=== PATIENT | female | born 1945 | race Caucasian/White ===

== ENCOUNTER → 2020-10-13 09:21 | Outpatient (CLI) | payer MEDICARE, MEDICAID, SELFPAY ==
--- NOTE | 2020-10-13 10:05 | PC.NURSE ---
Pt here for PFT and 6 minute walk test. Attempted FVC 8 separate times the PT is unable to breath out for more than 2 seconds total. She did not give a good effort even though I explained the importance for the test multiple times. She was instructed in different ways with no success. Pt finally states I am doing my best I am just too short of breath, I am unable to continue. RR 14 bpm easy and calm, no respiratory distress or SOB noted. 6 minute walk test completed with no complications, after fourth attempt then returned to PFT for four more unsuccessful attempts.
== END ==
PROVIDERS: PCP Family Medicine; Visit Provider Internal Medicine Pulmonary Disease
DX: R06.02 Shortness of breath (principal); R91.1 Solitary pulmonary nodule
CPT/HCPCS: 94010; 94618

== ENCOUNTER → 2020-11-08 14:02 | Outpatient (CLI) | payer MEDICARE, MEDICAID, SELFPAY ==
--- NOTE | 2020-11-08 14:15 | CT_ITS ---
PROCEDURE INFORMATION: Exam: CT Chest Without Contrast; Diagnostic; High Resolution Exam date and time: 11/08/2020 2:15 PM Age: 75 years old Clinical indication: Other: Lung nodule TECHNIQUE: Imaging protocol: Diagnostic computed tomography of the chest without contrast. Exam was performed with high resolution protocol. 3D rendering (Not supervised by radiologist): MIP and/or 3D reconstructed images were created by the technologist. Radiation optimization: All CT scans at this facility use at least one of these dose optimization techniques: automated exposure control; mA and/or kV adjustment per patient size (includes targeted exams where dose is matched to clinical indication); or iterative reconstruction. COMPARISON: CT CHEST WO CONTRAST 08/26/2020 2:39 PM FINDINGS: Lungs: Calcified nodule noted within the right upper lobe consistent with granulomatous changes. No new pulmonary nodules. The lungs are hyperinflated, consistent with underlying small airways disease. Atelectatic changes noted within both lung bases. Pleural space: Mild apical pleural thickening bilaterally. Heart: There is mild atherosclerotic calcification of the coronary arteries. The heart demonstrates mild diffuse enlargement. Aorta: Unremarkable. No aortic aneurysm. Lymph nodes: There is no evidence of mediastinal or hilar lymphadenopathy. Bones/joints: The thoracic spine demonstrates mild degenerative changes at multiple levels. Soft tissues: Unremarkable. IMPRESSION: 1. Calcified nodule noted within the right upper lobe consistent with granulomatous changes. 2. No new pulmonary nodules. 3. The lungs are hyperinflated, consistent with underlying small airways disease. 4. Atelectatic changes noted within both lung bases.
[2020-11-08 14:43] LABS: Blood Urea Nitrogen 13 mg/dl (7-17); Estimated Glomerular Filt Rate 70 ml/min (>60); GFR (African American) 85 ML/MIN (>60)
== END ==
PROVIDERS: PCP Family Medicine; Visit Provider Internal Medicine Pulmonary Disease
DX: J84.9 Interstitial pulmonary disease, unspecified (principal)
CPT/HCPCS: 36415; 71250; 82565; 84520

== ENCOUNTER 2021-07-10 15:27 | Inpatient (IN) | payer MEDICARE, MEDICAID, SELFPAY ==
[2021-07-10 15:42] VITALS: BMI 22.1
--- NOTE | 2021-07-10 15:42 | PC.NURSE ---
pt arrived to floor via ambulance stretcher
[2021-07-10 16:27] LABS: Influenza A, PCR Not Detected (NotDetected); Influenza B, PCR Not Detected (NotDetected)
[2021-07-10 17:37] LABS: Coronavirus 19, PCR Detected (NotDetected)
[2021-07-10 20:00] VITALS: BP 132/63; PULSE 60; PULSE 63; RESP 20; TEMP 36.8; O2SAT 91
--- NOTE | 2021-07-10 21:13 | HMH.HP ---
*Admission Date: 07/10/21 *Chief complaint: weakness *History of present illness: this patient presented to [place] [facility] with issues of weakness and not feeling well and fall - pt has diabetes but denied any known heart dis - pt was found to have elevated troponin consistent with nonstemi as ekg was stable and was transfered to [facility] for card eval and treatment - pt was found to be covid-19 positive at [place]- pt had uti also and was given roch and had neg ct of head and cxr with stable labs [facility] History I have reviewed the patient's past medical history: Yes Medical History: Reports:: Asthma, Chronic Obstructive Pulmonary Disease (COPD), Coronary Artery Disease, Gastroesophageal Reflux Disease(GERD), Hyperlipidemia, Hypertension, Palpitations Denies:: Diabetes Mellitus Type 2 *Have you ever received a pneumonia vaccine?: No *Have you received a flu vaccine this season?: No Other Medical History: Reports: Anemia, Arthritis Other Surgeries: Yes: - *Social History Smoking Status: Never smoker Alcohol Intake: never *Occupational Status:: retired *Travel in the last 8 weeks: None Family Hx:: Cancer, Diabetes, Heart Attack, Hyperlipidemia, Hypertension Review of Systems - Review of Systems Review of systems:: pertinent systems reviewed and negative unless documented below - Constitutional Reports weakness, Denies fever(s) - Eyes Denies discharge - ENT Denies sore throat - *Cardiovascular Denies chest pain, Denies shortness of breath - *Respiratory Denies cough - *Gastrointestinal Denies abdominal pain - *Genitourinary Denies blood in urine - *Musculoskeletal Denies joint pain - Integumentary/Breasts Denies rash - *Neurologic Denies abnormal speech, Denies localized weakness, Denies headache(s), Denies seizure-like activity - Psychiatric Denies confusion, Denies depression Meds Home Medications Medication Instructions Recorded Confirmed Type albuterol sulfate 90 mcg/actuation 2 puff INHALATION Q4-6H PRN 09/20/20 07/10/21 History aerosol inhaler amlodipine 10 mg tablet 10 mg PO DAILY 09/20/20 07/10/21 History aspirin 81 mg tablet,delayed 81 mg PO DAILY 09/20/20 07/10/21 History release cholecalciferol (vitamin D3) 50 50 mcg PO DAILY 09/20/20 07/10/21 History mcg (2,000 unit) capsule ferrous sulfate 325 mg (65 mg 325 mg PO DAILY 09/20/20 07/10/21 History iron) tablet glimepiride 1 mg tablet 1 mg PO BID tab 09/20/20 07/10/21 History lisinopril 20 1 tab PO DAILY 09/20/20 07/10/21 History mg-hydrochlorothiazide 12.5 mg tablet metformin 500 mg tablet 500 mg PO QID tab 09/20/20 07/10/21 History montelukast 10 mg tablet 10 mg PO DAILY 09/20/20 07/10/21 History omeprazole magnesium 20 mg 20 mg PO BID 09/20/20 07/10/21 History tablet,delayed release pravastatin 40 mg tablet 40 mg PO DAILY 09/20/20 07/10/21 History pregabalin 75 mg capsule 75 mg PO BID 09/20/20 07/10/21 History fluticasone 250 mcg-salmeterol 50 1 inh INHALATION BID 90 Days #60 01/11/21 07/10/21 Rx mcg/dose blistr powdr for each inhalation Allergies Allergy/AdvReac Type Severity Reaction Status Date / Time sumatriptan [From Imitrex] Allergy Verified 07/10/21 17:41 Exam Vital signs and Labs for Last 24 Hours: Temp Pulse Resp BP Pulse Ox 98.2 F 63 20 132/63 91 L 07/10/21 20:00 07/10/21 20:00 07/10/21 20:00 07/10/21 20:00 07/10/21 20:00 Laboratory Results - last 24 hr 07/10/21 16:19: SARS-CoV-2 (PCR) Detected A, Influenza A Untype (PCR) Not detected, Influenza Type B (PCR) Not detected I & O for Last 24 hours: Intake & Output 07/08/21 07/09/21 07/10/21 07/11/21 11:59 11:59 11:59 11:59 Intake Total 120 / 120 Balance 120 / 120 Weight 137 lb 2.04 oz - Constitutional no acute distress, cooperative - *Routine HEENT Exam Head: Present: normocephalic Eye: Present: EOMI, PERRL ENT: Present: mucous membranes dry - *Routine Neck Exam Absent: CARINE
[2021-07-11] VITALS (23 sets, daily range): BP systolic 135–182; BP diastolic 61–93; PULSE 50–89; RESP 15–22; TEMP 36.6–36.9; O2SAT 91–96; BMI 22.0
--- NOTE | 2021-07-11 | IR_ITS ---
APPROVED REPORT Patient Location: Inpatient Verification Rep: TONY Amaya RT (R) PROCEDURES Left heart catheterization Left ventriculogram Selective coronary angiogram Bilateral selective renal angiogram INDICATION Acute non-ST elevation myocardial infarction, Intermittent malignant hypertension Informed consent was obtained prior to the procedure. COMPLICATIONS None Estimated Blood Loss: Less than 10 mls TECHNIQUE One percent lidocaine used to anesthetize the right anterior aspect of the wrist. The right radial artery was accessed via the Seldinger technique. A 6 Kyrgyz sheath was placed in the right radial artery. 2.5 mg of verapamil, 800 mcg of nitroglycerin, 1mg Lidocaine and 5000 U Heparin were given through the arterial sheath. The Poppa catheter was also used to perform left heart catheterization, left ventriculogram and selective coronary angiogram. Because of patient's severe hypertension it was felt she may have renal artery stenosis therefore bilateral selective renal angiography was performed. At the end of the procedure the sheath was removed good hemostasis was achieved using Traclet band, patient was transferred to the postop holding area in stable condition. ANGIOGRAPHIC RESULTS The left main artery Has an ostial concentric 30% stenosis The left anterior descending artery Is a large-caliber vessel with proximal 10% calcified luminal irregularities The circumflex artery Mild nonflow limiting 10% luminal irregularities The right coronary artery Is a dominant vessel and has a long concentric mid vessel 20% stenosis The SEVILLA ventriculogram reveals Normal 65% The left ventricular end-diastolic pressure 20 mmHg Right renal artery singular and has an ostial 30% stenosis Left renal artery singular normal IMPRESSION Mild nonflow limiting coronary disease Normal ejection fraction Elevated LVEDP consistent with hypertensive heart disease Nonflow limiting renal artery stenosis Elevated troponin likely secondary to hypertensive heart disease with malignant hypertension. Patient likely experienced a type II myocardial infarction PLAN 1. Treatment of hypertension 2. Medical management for coronary disease 3. Supportive care for COVID-19 Electronically signed by : Baer Sanders MD 07/11/2021 12:52:43
[2021-07-11 05:35] LABS: Basophils % 1.5 % (0.1-2.0); Eosinophils % 1.3 % (0.1-12.0); Hemoglobin 13.1 g/dL (12.2-16.2); Lymphocytes # 0.5 K/mm3 (0.7-4.5); Lymphocytes % 23.9 % (10-50); Mean Corpuscular HGB Conc 32.8 g/dL (31.8-35.4); Mean Corpuscular Hemoglobin 31.1 pg (27.0-31.2); Mean Platelet Volume 8.7 fl (7.4-10.4); Monocytes # 0.2 K/mm3 (0.1-1.0); Neutrophils # 1.2 K/mm3 (1.8-7.8); Neutrophils % 62.3 % (37.0-80.0); Platelet Count 165 K/mm3 (142-424); Red Blood Count 4.21 M/mm3 (4.20-5.40); Red Cell Distribution Width 13.8 % (11.5-17.5)
[2021-07-11 05:40] LABS: Chloride 101 mmol/L (98-107); Sodium 134 mmol/L (136-145)
[2021-07-11 05:43] LABS: Anion Gap 13.9 mEq/L (5-15); Blood Urea Nitrogen 10 mg/dl (7-17); Carbon Dioxide 22 mmol/L (22.0-30.0); Creatinine Clearance Estimated 48 mL/min (50-200); Estimated Glomerular Filt Rate 70 ml/min (>60); GFR (African American) 85 ML/MIN (>60)
[2021-07-11 05:44] LABS: Calcium 8.1 mg/dl (8.4-10.2); Cholesterol 186 mg/dl (140-200); Glucose 186 mg/dl (74-100); HDL Cholesterol 62 mg/dl (40-60); Magnesium 1.3 mg/dl (1.6-2.3); Triglycerides 145 mg/dl (30-150); VLDL Cholesterol 29 mg/dL (0-40)
--- NOTE | 2021-07-11 05:47 | PC.NURSE ---
pt anxious and shaking, checked fsbs 183
[2021-07-11 05:55] LABS: Direct LDL Cholesterol 89.69 mg/dL (100-129)
[2021-07-11 05:58] LABS: NT Pro Brain Natriuretic Pep. 1530 pg/mL (0-125)
[2021-07-11 06:06] LABS: POC Glucose,Bedside 183 (70-110)
[2021-07-11 06:15] LABS: Thyroid Stimulating Hormone 3.94 uIU/mL (0.465-4.68)
[2021-07-11 06:24] LABS: Potassium 2.9 mmoL/L (3.5-5.1)
--- NOTE | 2021-07-11 07:23 | HMH.PHAVTE ---
[facility] Pharmacy VTE Monitoring - Patient Demographics Admission date: 07/10/21 Report Date: 07/11/21 Time: 07:23 Allergies/Adverse Reactions: Patient Allergies sumatriptan [From Imitrex] Allergy (Verified 07/10/21 17:41) Height: 1.68 m Weight: 62.233 kg Patient Problems: Current Active Problems Non-ST elevated myocardial infarction (non-STEMI) (Acute) Diabetes mellitus (Acute) UTI (urinary tract infection) (Acute) COVID-19 (Acute) - VTE Risk Labs: VTE Related Lab Results Hgb 13.1 g/dL (12.2-16.2) 07/11/21 05:27 Hct 40.0 % (37.0-47.0) 07/11/21 05:27 Plt Count 165 K/mm3 (142-424) 07/11/21 05:27 BUN 10 mg/dl (7-17) 07/11/21 05:27 Creatinine 0.80 mg/dl (0.52-1.04) 07/11/21 05:27 Estimated Creat Clear 48 mL/min (50-200) 07/11/21 05:27 VTE Score: 6 VTE Risk Level: Moderate Risk - Prophylaxis VTE Prophylaxis Ordered?: Yes Types of VTE Prophylaxis: TEDS Knee High Location of Applied Device: Bilateral Lower Extremeties
--- NOTE | 2021-07-11 08:00 | CA_ITS ---
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80 mL TAPSE 1.87 (<1.7) ESV (Teich) 50.20 mL LV Diastology E Decel Time 193.00 (160-240 msec) E/A Ratio 0.44 MED E' 7.00 (< 7 cm/sec) MED A' 13.80 cm/s E'/MED E' Ratio 8.44 (>14) LAT E' 7.30 (<10 cm/sec) LAT A' 13.40 cm/s E/LAT E' Ratio 8.10 (>14) Aortic Valve LVOT Max 92.00 (70-110 cm/s) LVOT VTI 17.72 cm AoV Peak Danny. 153.00 (50-130 cm/s) AO Peak GR. 9.30 mmHg AO Mean GR. 4.60 (<5 mmHg) AO VTI 30.74 (18-25 cm) MOOK (VTI) 1.96 (2.5-4.5 cm2) Mitral Valve MV A Velocity 133.00 (40-130 cm/s) E/A Ratio 0.44 MV Decel. Time 193.00 (160-240 ms) MV Mean Gr. 1.80 (<2mmHg) Pulmonary Valve PV Peak Velocity 78.00 (50-150 cm/s) Tricuspid Valve TR P. Velocity 285.00 cm/s RAP Estimate 10.00 mmHg RVSP 42.40 mmHg Left Ventricle Left atrium is mildly enlarged, left ventricle is normal size, visually estimated ejection fraction 55% with no regional wall motion abnormality, grade 1 diastolic dysfunction seen without tissue Doppler evidence of raise left atrial pressure. Right Ventricle Right atrium and right ventricle are normal size and contractility. Aortic Valve Aortic valve is grossly normal, there is no aortic stenosis or aortic insufficiency. Mitral Valve Mitral valve grossly normal, there is trace mitral regurgitation. Tricuspid Valve Tricuspid valve is grossly normal, there is trace tricuspid regurgitation. Tricuspid regurgitation jet velocity is inadequate for calculation of the right ventricular systolic pressure. Pulmonic Valve Pulmonic valve is poorly visualized. Great Vessels Aortic root is normal size. Inferior vena cava is normal size with normal inspiratory collapse. Pericardium No significant pericardial effusion noted. Conclusion 1. Normal left ventricular size, preserved left ventricular systolic function, visually estimated ejection fraction 55% with no regional wall motion abnormality, grade 1 diastolic dysfunction seen without tissue Doppler evidence of raise left atrial pressure. 2. Trace mitral and tricuspid regurgitation. 3. No significant pericardial effusion. 4. Inferior vena cava is normal size with normal inspiratory collapse. Electronically signed by : Darren Kumar MD 07/11/2021 18:56:56
--- NOTE | 2021-07-11 08:19 | CT_ITS ---
FINAL REPORT TECHNIQUE: Then section axial CT images of the chest were obtained with contrast. Three-D reformatted images were also obtained.This study was performed with techniques to keep radiation doses as low as reasonably achievable (ALARA). Individualized dose reduction techniques using automated exposure control or adjustment of mA and/or kV according to the patient''s size were employed. CLINICAL HISTORY: COVIDEFREN FINDINGS: There is no evidence of pulmonary embolism. There is no evidence of thoracic aortic aneurysm or dissection. There is no evidence of mediastinal or hilar mass or adenopathy. There is no evidence of pulmonary mass or suspicious nodule. There is mild atelectasis or scarring. Limited images of the upper abdomen are unremarkable. IMPRESSION: 1. No evidence of pulmonary embolism. 2. No mass. Reviewed, Interpreted and Dictated by Chandan Santoyo III, MD Transcribed by Bud Langford Authenticated by Chandan Santoyo III, MD on 07/11/2021 10:12:05 AM [facility]
--- NOTE | 2021-07-11 08:22 | HMH.ACPN2 ---
Internal Medicine - PN: Subj *Date: 07/11/21 *Time: 09:40 Interval history: 76-year-old female patient sitting up in bed resting quietly. She denies any chest pain or shortness of breath during the night. Current oxygenation status 94% on room air. Cardiology to see Exam Vital signs and Labs for Last 24 Hours: Temp Pulse Resp BP Pulse Ox 98.3 F 89 16 182/93 H 93 L 07/11/21 07:54 07/11/21 07:54 07/11/21 07:54 07/11/21 07:54 07/11/21 07:54 Laboratory Results - last 24 hr 07/10/21 16:19: SARS-CoV-2 (PCR) Detected A, Influenza A Untype (PCR) Not detected, Influenza Type B (PCR) Not detected 07/11/21 05:19: POC Glucose 183 H 07/11/21 05:27: WBC 2.0 L, RBC 4.21, Hgb 13.1, Hct 40.0, MCV 95.0, MCH 31.1, MCHC 32.8, RDW 13.8, Plt Count 165, MPV 8.7, Neut % (Auto) 62.3, Lymph % (Auto) 23.9, Yell % (Auto) 11.0 H, Eos % (Auto) 1.3, Baso % (Auto) 1.5, Neut # (Auto) 1.2 L, Lymph # (Auto) 0.5 L, Yell # (Auto) 0.2, Eos # (Auto) 0.0, Baso # (Auto) 0.0 07/11/21 05:27: Sodium 134 L, Potassium 2.9 L*, Chloride 101, Carbon Dioxide 22, Anion Gap 13.9, BUN 10, Creatinine 0.80, Estimated Creat Clear 48, Estimated GFR 70, Est GFR ( Amer) 85, Glucose 186 H, Calcium 8.1 L, Magnesium 1.3 L, Triglycerides 145, Cholesterol 186, LDL Cholesterol Direct 89.69 L, VLDL Cholesterol 29, HDL Cholesterol 62 H, Cholesterol/HDL Ratio 3.0, TSH 3.94, Thyroxine (T4) 11.0 07/11/21 05:27: NT-Pro-B Natriuret Pep 1530 H I & O for Last 24 hours: Intake & Output 07/08/21 07/09/21 07/10/21 07/11/21 23:59 23:59 23:59 23:59 Intake Total 120 / 120 Balance 120 / 120 Weight 137 lb 2.04 oz 137 lb 3.2 oz - Constitutional no acute distress - *Routine HEENT Exam Head: Present: normocephalic Eye: Present: EOMI ENT: Present: mucous membranes moist - *Routine Neck Exam Present: trachea midline. Absent: tracheal deviation - *Routine Respiratory Exam Present: CTA bilaterally. Absent: accessory muscle use - *Routine Cardiovascular Exam Present: RRR - *Routine Abdominal Exam Present: soft, normoactive bowel sounds. Absent: tenderness - *Routine Extremities Exam Present: full ROM, pulses intact. Absent: cyanosis, clubbing - *Routine Skin Exam Present: intact, dry. Absent: cyanosis, erythema - *Routine Neurological Exam Present: alert, oriented X3. Absent: motor deficit - Routine Psychiatric Exam Present: normal affect, normal thought process. 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 Diabetes mellitus complication status: with other specified complication Qualified Code(s): E11.69 - Type 2 diabetes mellitus with other specified complication Category: Medical Code(s): E11.9 - Type 2 diabetes mellitus without complications (3) UTI (urinary tract infection) Status: Acute Qualifiers: Urinary tract infection type: site unspecified Hematuria presence: without hematuria Qualified Code(s): N39.0 - Urinary tract infection, site not specified Category: Medical Code(s): N39.0 - Urinary tract infection, site not specified (4) COVID-19 Status: Acute Category: Medical Code(s): U07.1 - COVID-19 - Assessment and plan all Dx Assessment and Plan for all problems:: Rounded with Dr. Arauz, all orders per Dr. Arauz: 1. Cardiology to see 2. Pulmonology to see
--- NOTE | 2021-07-11 09:16 | HMH.PULMCON ---
*Admission Date: 07/10/21 [facility] History Medical History: Reports:: Asthma, Chronic Obstructive Pulmonary Disease (COPD), Coronary Artery Disease, Gastroesophageal Reflux Disease(GERD), Hyperlipidemia, Hypertension, Palpitations Denies:: Diabetes Mellitus Type 2 *Have you ever received a pneumonia vaccine?: No *Have you received a flu vaccine this season?: No Other Medical History: Reports: Anemia, Arthritis Other Surgeries: Yes: - *Social History Smoking Status: Never smoker Alcohol Intake: never *Occupational Status:: retired *Travel in the last 8 weeks: None Family Hx:: Cancer, Diabetes, Heart Attack, Hyperlipidemia, Hypertension Meds Home Medications Medication Instructions Recorded Confirmed Type albuterol sulfate 90 mcg/actuation 2 puff INHALATION Q4-6H PRN 09/20/20 07/10/21 History aerosol inhaler aspirin 81 mg tablet,delayed 81 mg PO DAILY 09/20/20 07/10/21 History release cholecalciferol (vitamin D3) 50 50 mcg PO DAILY 09/20/20 07/10/21 History mcg (2,000 unit) capsule ferrous sulfate 325 mg (65 mg 325 mg PO HS 09/20/20 07/11/21 History iron) tablet glimepiride 1 mg tablet 1 mg PO BID tab 09/20/20 07/10/21 History lisinopril 20 1 tab PO DAILY 09/20/20 07/10/21 History mg-hydrochlorothiazide 12.5 mg tablet metformin 500 mg tablet 1,000 mg PO BID tab 09/20/20 07/11/21 History pravastatin 40 mg tablet 40 mg PO HS 09/20/20 07/11/21 History fluticasone 250 mcg-salmeterol 50 1 inh INHALATION BID 90 Days #60 01/11/21 07/10/21 Rx mcg/dose blistr powdr for each inhalation Hydrocodone/Acetaminophen 1 tab PO BID 07/11/21 07/11/21 History [Hydrocodone-Acetamin 5-325 mg] Omeprazole [Omeprazole 40mg 40 mg PO BID 07/11/21 07/11/21 History Capsule] Pregabalin [Lyrica 150mg Cap] 150 mg PO BID 07/11/21 07/11/21 History Sertraline HCl 100 mg PO DAILY 07/11/21 07/11/21 History Tizanidine HCl [Zanaflex 4mg 4 mg PO HS 07/11/21 07/11/21 History tab] cloNIDine HCL [cloNIDine 0.1mg 0.1 mg PO BID 07/11/21 07/11/21 History Tablet] Allergies Allergy/AdvReac Type Severity Reaction Status Date / Time sumatriptan [From Imitrex] Allergy Verified 07/10/21 17:41 Internal Medicine - CN: Reslt - Labs CBC & Chem 7: 07/11/21 05:27 07/11/21 05:27 Labs: Short CBC 07/11/21 Range/Units 05:27 WBC 2.0 L (4.8-10.8) K/mm3 Hgb 13.1 (12.2-16.2) g/dL Hct 40.0 (37.0-47.0) % Plt Count 165 (142-424) K/mm3 [facility] 07/11/21 05:27 Sodium 134 L Potassium 2.9 L* Chloride 101 Carbon Dioxide 22 BUN 10 Creatinine 0.80 Glucose 186 H Calcium 8.1 L Assessment and Plan (1) Non-ST elevated myocardial infarction (non-STEMI) Status: Acute Category: Medical Code(s): I21.4 - Non-ST elevation (NSTEMI) myocardial infarction (2) Diabetes mellitus Status: Acute Qualifiers: Diabetes mellitus type: type 2 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 mellitus 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: 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 Diabetes mellitus complication status: with other specified complication Qualified Code(s): E11.69 - Type 2 diabetes mellitus with other specified complication Category: Medical Code(s): E11.9 - Type 2 diabetes mellitus without complications (3) UTI (urinary tract infection) Status: Acute Qualifiers: Urinary tract infection type: site unspecified Hematuria presence: without hematuria Qualified Code(s): N39.0 - Urinary tract infection, site not specified Category: Medical Code(s): N39.0 - Urinary tract infection, site not specified (4) COVID-19 Status: Acute Category: Medical Code(s): U07.1 - COVID-19 - Assessment and plan all Dx Assessment and Plan for all problems:: #COVID-19 pneumonia: Mr. Desir a 75-year-old female, no significant smoking, significant secondhand exposure, personal history of asthma and seasonal allergies presented to hospital worsening respiratory distress and was resulted positive for COVID-19 pneumo
--- NOTE | 2021-07-11 09:18 | HMH.CNCARD ---
History of Present Illness Consult date: 07/11/21 Requesting physician: Azael Arauz Chief complaint: weakness History of present illness: This is a 76-year-old white female who presented from [facility] emergency department with a non-ST elevation myocardial infarction. The patient presented to [facility] emergency department with weakness and not feeling well. The patient states that she felt weak, tired and dizzy all weekend but then this significantly worsened on Saturday. She states that when she woke up she was so weak that she felt like she could not walk and when she did her to walk she felt like she was going to fall. The patient states that she felt very unsteady and fatigue so she called her son and he brought her to the emergency department at [facility]. While in the emergency there the patient was found to have an elevated troponin consistent with a non-ST elevation myocardial infarction. She denies any chest pain or pressure. She denies any shortness of breath. She does report having edema in her bilateral lower extremities. She states that this has been going on for approximately a month. She states that sometimes her lower extremities are red with the edema. This does improve with rest. It worsens throughout the day. She denies any fever. She does report having chills intermittently. She is positive for COVID-19. She denies any nausea, vomiting, diarrhea, PND or orthopnea. [facility] History I have reviewed the patient's past medical history: Yes Medical History: Reports:: Asthma, Chronic Obstructive Pulmonary Disease (COPD), Gastroesophageal Reflux Disease(GERD), Hyperlipidemia, Hypertension, Myocardial Infarction, Palpitations Denies:: Diabetes Mellitus Type 2 *Have you ever received a pneumonia vaccine?: No *Have you received a flu vaccine this season?: No Other Medical History: Reports: Anemia, Arthritis Other Surgeries: Yes: - *Social History Smoking Status: Never smoker Alcohol Intake: never *Occupational Status:: retired *Travel in the last 8 weeks: None Family Hx:: Cancer, Diabetes, Heart Attack, Hyperlipidemia, Hypertension Meds Home Medications Medication Instructions Recorded Confirmed Type albuterol sulfate 90 mcg/actuation 2 puff INHALATION Q4-6H PRN 09/20/20 07/10/21 History aerosol inhaler aspirin 81 mg tablet,delayed 81 mg PO DAILY 09/20/20 07/10/21 History release cholecalciferol (vitamin D3) 50 50 mcg PO DAILY 09/20/20 07/10/21 History mcg (2,000 unit) capsule ferrous sulfate 325 mg (65 mg 325 mg PO HS 09/20/20 07/11/21 History iron) tablet glimepiride 1 mg tablet 1 mg PO BID tab 09/20/20 07/10/21 History lisinopril 20 1 tab PO DAILY 09/20/20 07/10/21 History mg-hydrochlorothiazide 12.5 mg tablet metformin 500 mg tablet 1,000 mg PO BID tab 09/20/20 07/11/21 History pravastatin 40 mg tablet 40 mg PO HS 09/20/20 07/11/21 History fluticasone 250 mcg-salmeterol 50 1 inh INHALATION BID 90 Days #60 01/11/21 07/10/21 Rx mcg/dose blistr powdr for each inhalation Hydrocodone/Acetaminophen 1 tab PO BID 07/11/21 07/11/21 History [Hydrocodone-Acetamin 5-325 mg] Omeprazole [Omeprazole 40mg 40 mg PO BID 07/11/21 07/11/21 History Capsule] Pregabalin [Lyrica 150mg Cap] 150 mg PO BID 07/11/21 07/11/21 History Sertraline HCl 100 mg PO DAILY 07/11/21 07/11/21 History Tizanidine HCl [Zanaflex 4mg 4 mg PO HS 07/11/21 07/11/21 History tab] cloNIDine HCL [cloNIDine 0.1mg 0.1 mg PO BID 07/11/21 07/11/21 History Tablet] Allergies Allergy/AdvReac Type Severity Reaction Status Date / Time sumatriptan [From Imitrex] Allergy Verified 07/10/21 17:41 Exam Vital signs and Labs for Last 24 Hours: Temp Pulse Resp BP Pulse Ox 98.3 F 89 16 182/93 H 93 L 07/11/21 07:54 07/11/21 07:54 07/11/21 07:54 07/11/21 07:54 07/11/21 07:54 Laboratory Results - last 24 hr 07/10/21 16:19: SARS-CoV-2 (PCR) Detected A, Influenza
[2021-07-11 09:36] LABS: Lactate Dehydrogenase 299 U/L (313-618)
[2021-07-11 10:01] LABS: C-Reactive Protein 5.5 mg/L (0-4)
--- NOTE | 2021-07-11 10:36 | HMH.PHAINT ---
verified home medication list using list from outpatient pharmacy
--- NOTE | 2021-07-11 15:16 | PC.NURSE ---
pt is aware that urine in needed
[2021-07-11 18:03] LABS: Microscopic, Urine URINE MICROSCOPIC (MICROSCOPIC)
--- NOTE | 2021-07-11 18:15 | PC.NURSE ---
pt has appeared tired since returning to the unit. she is able to get up to bsc with assistance. urine sample obtained and sent to lab. lung sounds are clear but diminished. pt is on ra at this time with no dyspnea noted. bowel sounds are active in all quads. nad noted.
[2021-07-11 18:18] LABS: Appearance,Urine CLEAR (Clear); Bilirubin,Urine Negative (Negative); Blood, Urine TRACE-I (Negative); Color,Urine YELLOW (Yellow); Glucose,Urine (UA) TRACE (Negative); Ketones,Urine 3+ (Negative); Leukocyte Esterase,Urine Negative (Negative); Nitrate,Urine Negative (Negative); Protein,Urine TRACE (Negative); Urobilinogen,Urine 0.2 EU/dl (0.2)
[2021-07-12] VITALS (7 sets, daily range): BP systolic 127–163; BP diastolic 57–74; PULSE 58–80; RESP 15–18; TEMP 36.4–36.9; O2SAT 91–93; BMI 21.5
[2021-07-12 06:13] LABS: Basophils % 0.7 % (0.1-2.0); Eosinophils % 0.4 % (0.1-12.0); Hematocrit 38.4 % (37.0-47.0); Hemoglobin 12.5 g/dL (12.2-16.2); Lymphocytes # 0.8 K/mm3 (0.7-4.5); Lymphocytes % 27.2 % (10-50); Mean Corpuscular HGB Conc 32.5 g/dL (31.8-35.4); Mean Corpuscular Hemoglobin 29.4 pg (27.0-31.2); Mean Corpuscular Volume 90.4 fl (81-99); Mean Platelet Volume 8.2 fl (7.4-10.4); Monocytes # 0.2 K/mm3 (0.1-1.0); Monocytes % 7.1 % (1.7-9.3); Neutrophils # 1.8 K/mm3 (1.8-7.8); Neutrophils % 64.7 % (37.0-80.0); Platelet Count 197 K/mm3 (142-424); Red Blood Count 4.25 M/mm3 (4.20-5.40); Red Cell Distribution Width 13.5 % (11.5-17.5); White Blood Count 2.8 K/mm3 (4.8-10.8)
[2021-07-12 06:15] LABS: Chloride 101 mmol/L (98-107); Sodium 135 mmol/L (136-145)
[2021-07-12 06:18] LABS: Anion Gap 11.9 mEq/L (5-15); Blood Urea Nitrogen 14 mg/dl (7-17); Carbon Dioxide 25 mmol/L (22.0-30.0); Creatinine Clearance Estimated 43 mL/min (50-200); Estimated Glomerular Filt Rate 49 ml/min (>60); GFR (African American) 59 ML/MIN (>60)
[2021-07-12 06:19] LABS: Glucose 168 mg/dl (74-100)
[2021-07-12 06:48] LABS: Potassium 2.9 mmoL/L (3.5-5.1)
--- NOTE | 2021-07-12 10:07 | HMH.PNCARD ---
Subjective Date: 07/12/21 Time: 09:30 Principal diagnosis: nonstemi, malignant htn Interval history: This is a 76-year-old white female who was admitted to the hospital here after presenting to [facility] emergency department and found to have a non-ST elevation myocardial infarction. She underwent left cardiac catheterization yesterday and was found to have mild nonflow limiting coronary artery disease. She did have an elevated LVEDP consistent with hypertensive heart disease. She most likely had a type II myocardial infarction from hypertensive heart disease with malignant hypertension. The patient has been started on additional antihypertensive medications and her blood pressure has improved. This morning she denies any chest pain or pressure. She denies any shortness of breath. She states her lower extremity edema is better. Her intake and output is not accurate. She denies any fever, chills, nausea, vomiting, diarrhea, PND or orthopnea. Exam Vital signs and Labs for Last 24 Hours: Temp Pulse Resp BP Pulse Ox 97.6 F 75 18 163/74 H 92 L 07/12/21 07:50 07/12/21 07:50 07/12/21 07:50 07/12/21 07:50 07/12/21 07:50 Laboratory Results - last 24 hr 07/11/21 05:27: C-Reactive Protein 5.5 H 07/11/21 17:57: Urine Color Yellow, Urine Appearance Clear, Urine pH 6.0, Ur Specific [place] 1.020, Urine Protein Trace, Urine Glucose (UA) Trace, Urine Ketones 3+, Urine Blood Trace-i, Urine Nitrate Negative, Urine Bilirubin Negative, Urine Urobilinogen 0.2, Ur Leukocyte Esterase Negative, Urine RBC 3-5, Urine WBC None, Ur Squamous Epith Cells 3-5, Urine Bacteria None 07/12/21 05:16: WBC 2.8 L D, RBC 4.25, Hgb 12.5, Hct 38.4, MCV 90.4, MCH 29.4, MCHC 32.5, RDW 13.5, Plt Count 197, MPV 8.2, Neut % (Auto) 64.7, Lymph % (Auto) 27.2, [place] % (Auto) 7.1, Eos % (Auto) 0.4, Baso % (Auto) 0.7, Neut # (Auto) 1.8, Lymph # (Auto) 0.8, [place] # (Auto) 0.2, Eos # (Auto) 0.0, Baso # (Auto) 0.0 07/12/21 05:16: Sodium 135 L, Potassium 2.9 L*, Chloride 101, Carbon Dioxide 25, Anion Gap 11.9, BUN 14 D, Creatinine 1.10 H D, Estimated Creat Clear 43, Estimated GFR 49 L, Est GFR ( Amer) 59 D, Glucose 168 H, Calcium 8.0 L I & O for Last 24 hours: Intake & Output 07/09/21 07/10/21 07/11/21 07/12/21 23:59 23:59 23:59 23:59 Intake Total 120 / 120 240 / 360 360 / 360 Output Total 400 / 400 Balance 120 / 120 240 / 360 -40 / -40 Weight 137 lb 2.04 oz 137 lb 2.04 oz 134 lb 4.184 oz Narrative: Echocardiogram shows: 1. Normal left ventricular size, preserved left ventricular systolic function, visually estimated ejection fraction 55% with no regional wall motion abnormality, grade 1 diastolic dysfunction seen without tissue Doppler evidence of raise left atrial pressure. 2. Trace mitral and tricuspid regurgitation. 3. No significant pericardial effusion. 4. Inferior vena cava is normal size with normal inspiratory collapse. - Constitutional no acute distress, average body habitus - *Routine HEENT Exam Head: Present: normocephalic, atraumatic Eye: Present: EOMI, PERRL ENT: Present: mucous membranes moist - *Routine Neck Exam Present: supple, full ROM, normal carotid upstroke. Absent: JVD, carotid bruit, lymphadenopathy - *Routine Respiratory Exam Present: CTA bilaterally - *Routine Cardiovascular Exam Present: RRR, Normal S1, Normal S2. Absent: murmur - *Routine Abdominal Exam Present: soft, normoactive bowel sounds. Absent: tenderness, distended - *Routine Extremities Exam Present: full ROM, pulses intact, normal capillary refill. Absent: cyanosis, clubbing, edema - *Routine Skin Exam Present: intact, warm. Absent: erythema, rash - *Routine Neurological Exam Present: alert, oriented X3, CN II-XII intact. Absent: sensory deficit, motor deficit Progress Note: A&P (1) Non-ST elevated myocardial infarction (non-STEMI) Status: Acute (2) Diabetes mellitus Status: Acute (3) UTI (urinary tract infection
[2021-07-12 12:28] LABS: Anion Gap 14.9 mEq/L (5-15); Blood Urea Nitrogen 17 mg/dl (7-17); Calcium 8.6 mg/dl (8.4-10.2); Carbon Dioxide 26 mmol/L (22.0-30.0); Chloride 101 mmol/L (98-107); Creatinine Clearance Estimated 47 mL/min (50-200); Estimated Glomerular Filt Rate 54 ml/min (>60); GFR (African American) 66 ML/MIN (>60); Glucose 242 mg/dl (74-100); Potassium 3.9 mmoL/L (3.5-5.1); Sodium 138 mmol/L (136-145)
--- NOTE | 2021-07-12 13:00 | HMH.DCSUM ---
General - General Admission date:: 07/10/21 Discharge date: 07/12/21 HPI HPI: this patient presented to [facility] with issues of weakness and not feeling well and fall - pt has diabetes but denied any known heart dis - pt was found to have elevated troponin consistent with nonstemi as ekg was stable and was transfered to [facility] for card eval and treatment - pt was found to be covid-19 positive at [facility]- pt had uti also and was given roch and had neg ct of head and cxr with stable labs Hospital Course Hospital Course: Abnormal lab results 07/12/21 07/12/21 07/12/21 Range/Units 05:16 05:16 12:00 WBC 2.8 L D (4.8-10.8) K/mm3 Sodium 135 L (136-145) mmol/L Potassium 2.9 L* (3.5-5.1) mmoL/L Creatinine 1.10 H D (0.52-1.04) mg/dl Estimated GFR 49 L 54 L (>60) ml/min Glucose 168 H 242 H D (74-100) mg/dl Calcium 8.0 L (8.4-10.2) mg/dl Ordering Physician: Hans Smith APRN Date of Service: 07/11/21 Procedure(s): CT angio chest PE protocol Accession Number(s): [id number] cc: Virgen Russell ; Chandan Santoyo MD; Hans Smith APRN~ FINAL REPORT TECHNIQUE: Then section axial CT images of the chest were obtained with contrast. Three-D reformatted images were also obtained.This study was performed with techniques to keep radiation doses as low as reasonably achievable (ALARA). Individualized dose reduction techniques using automated exposure control or adjustment of mA and/or kV according to the patient''s size were employed. CLINICAL HISTORY: COVID, SOA FINDINGS: There is no evidence of pulmonary embolism. There is no evidence of thoracic aortic aneurysm or dissection. There is no evidence of mediastinal or hilar mass or adenopathy. There is no evidence of pulmonary mass or suspicious nodule. There is mild atelectasis or scarring. Limited images of the upper abdomen are unremarkable. IMPRESSION: 1. No evidence of pulmonary embolism. 2. No mass. echo: Conclusion 1. Normal left ventricular size, preserved left ventricular systolic function, visually estimated ejection fraction 55% with no regional wall motion abnormality, grade 1 diastolic dysfunction seen without tissue Doppler evidence of raise left atrial pressure. 2. Trace mitral and tricuspid regurgitation. 3. No significant pericardial effusion. 4. Inferior vena cava is normal size with normal inspiratory collapse. Ordering Physician: Bear Sanders MD Date of Service: 07/11/21 Procedure(s): CL c w ventricle Accession Number(s): [id number] cc: Virgen Russell ; Bear Sanders MD~ APPROVED REPORT Patient Location: Inpatient Transaction Coordinator: TONY Amaya RT (R) PROCEDURES Left heart catheterization Left ventriculogram Selective coronary angiogram Bilateral selective renal angiogram INDICATION Acute non-ST elevation myocardial infarction, Intermittent malignant hypertension Informed consent was obtained prior to the procedure. COMPLICATIONS None Estimated Blood Loss: Less than 10 mls TECHNIQUE One percent lidocaine used to anesthetize the right anterior aspect of the wrist. The right radial artery was accessed via the Seldinger technique. A 6 Bulgarian sheath was placed in the right radial artery. 2.5 mg of verapamil, 800 mcg of nitroglycerin, 1mg Lidocaine and 5000 U Heparin were given through the arterial sheath. The Po[place] catheter was also used to perform left heart catheterization, left ventriculogram and selective coronary angiogram. Because of patient's severe hypertension it was felt she may have renal artery stenosis therefore bilateral selective renal angiography was performed. At the end of the procedure the sheath was removed good hemostasis was achieved using Traclet band, patient was transferred to the postop holding area in stable condition. ANGIOGRAPHIC RESULTS The left main shiv
--- NOTE | 2021-07-12 13:52 | SW/DCPLANNER ---
I spoke with patients son (Roosevelt) regarding discharge plans for this patient. Roosevelt has stated that the plan is for this patient to return home once medically stable for discharge. I explained to Roosevelt that per nursing patients daughter has called stating she can not care for patient at home: Roosevelt denied situation and stated that he is waiting on a call once she is ready and he will transport her home. I offered to contact patients daughter in chart (Lucie) and Roosevelt stated that was not necessary. The plan for this patient is to discharge home today.
--- NOTE | 2021-07-12 14:04 | HMH.PHAINT ---
Discharge counseling complete. Informed patients of new meds, what they are for, how to take them, and possible side effects. Pt understood and had no questions or concerns
[2021-07-14 08:39] LABS: Peripheral Smear Review Scanned Result
== END 2021-07-12 16:47 | disposition home or self-care (01) | DRG 280 ==
PROVIDERS: Internal Medicine; Internal Medicine Pulmonary Disease; Nurse Practitioner Family; Admitting Provider Emergency Medicine; PCP Family Medicine; Visit Provider Emergency Medicine
DX: I21.4 Non-ST elevation (NSTEMI) myocardial infarction (principal); U07.1 COVID-19; N39.0 Urinary tract infection, site not specified; J44.9 Chronic obstructive pulmonary disease, unspecified; I25.10 Atherosclerotic heart disease of native coronary artery without angina pectoris; K21.9 Gastro-esophageal reflux disease without esophagitis; E78.5 Hyperlipidemia, unspecified; I10 Essential (primary) hypertension; E11.9 Type 2 diabetes mellitus without complications; M19.90 Unspecified osteoarthritis, unspecified site; I70.1 Atherosclerosis of renal artery
CPT/HCPCS: 36252; 36415; 71275; 80048; 80061; 81001; 82962; 83615; 83735; 83880; 84436; 84443; 85025; 86140; 87086; 93306; 93458; 94640; 99152; C1725; C1769; C9803; J1644; Q9967; U0003; U0005

== ENCOUNTER → 2021-07-20 10:04 | Outpatient (CLI) | payer MEDICARE, MEDICAID, SELFPAY ==
[2021-07-20 11:00] LABS: Basophils % 0.4 % (0.1-2.0); Eosinophils # 0.1 K/mm3 (0.0-0.4); Eosinophils % 1.9 % (0.1-12.0); Hemoglobin 13.1 g/dL (12.2-16.2); Lymphocytes # 0.9 K/mm3 (0.7-4.5); Lymphocytes % 22.2 % (10-50); Mean Corpuscular HGB Conc 34.5 g/dL (31.8-35.4); Mean Corpuscular Hemoglobin 30.6 pg (27.0-31.2); Mean Corpuscular Volume 88.8 fl (81-99); Mean Platelet Volume 9.2 fl (7.4-10.4); Monocytes # 0.3 K/mm3 (0.1-1.0); Monocytes % 6.1 % (1.7-9.3); Neutrophils # 2.9 K/mm3 (1.8-7.8); Neutrophils % 69.4 % (37.0-80.0); Platelet Count 248 K/mm3 (142-424); Red Blood Count 4.28 M/mm3 (4.20-5.40); Red Cell Distribution Width 13.2 % (11.5-17.5); White Blood Count 4.1 K/mm3 (4.8-10.8)
[2021-07-20 11:19] LABS: Chloride 101 mmol/L (98-107); Sodium 135 mmol/L (136-145)
[2021-07-20 11:20] LABS: Potassium 4.1 mmoL/L (3.5-5.1)
[2021-07-20 11:22] LABS: Anion Gap 11.1 mEq/L (5-15); Blood Urea Nitrogen 34 mg/dl (7-17); Carbon Dioxide 27 mmol/L (22.0-30.0); Estimated Glomerular Filt Rate 37 ml/min (>60); GFR (African American) 44 ML/MIN (>60)
[2021-07-20 11:23] LABS: Glucose 186 mg/dl (74-100)
== END ==
PROVIDERS: Visit Provider Nurse Practitioner Family
DX: E78.5 Hyperlipidemia, unspecified; E83.42 Hypomagnesemia; E87.6 Hypokalemia; I10 Essential (primary) hypertension; R94.30 Abnormal result of cardiovascular function study, unspecified; E11.69 Type 2 diabetes mellitus with other specified complication; E78.2 Mixed hyperlipidemia; I25.118 Atherosclerotic heart disease of native coronary artery with other forms of angina pectoris; R07.89 Other chest pain; R53.83 Other fatigue; Z79.84 Long term (current) use of oral hypoglycemic drugs
CPT/HCPCS: 36415; 80048; 85025

== ENCOUNTER → 2021-08-31 13:24 | Outpatient (CLI) | payer MEDICARE, MEDICAID, SELFPAY ==
[2021-08-31 14:30] LABS: Eosinophils # 0.1 K/mm3 (0.0-0.4); Eosinophils % 3.4 % (0.1-12.0); Hematocrit 37.6 % (37.0-47.0); Hemoglobin 12.3 g/dL (12.2-16.2); Lymphocytes # 1.1 K/mm3 (0.7-4.5); Lymphocytes % 27.2 % (10-50); Mean Corpuscular HGB Conc 32.8 g/dL (31.8-35.4); Mean Corpuscular Hemoglobin 31.6 pg (27.0-31.2); Mean Corpuscular Volume 96.5 fl (81-99); Mean Platelet Volume 9.2 fl (7.4-10.4); Monocytes # 0.2 K/mm3 (0.1-1.0); Monocytes % 5.7 % (1.7-9.3); Neutrophils # 2.5 K/mm3 (1.8-7.8); Neutrophils % 62.7 % (37.0-80.0); Platelet Count 223 K/mm3 (142-424); Red Cell Distribution Width 14.4 % (11.5-17.5)
[2021-08-31 14:52] LABS: Chloride 102 mmol/L (98-107); Potassium 4.8 mmoL/L (3.5-5.1); Sodium 139 mmol/L (136-145)
[2021-08-31 14:54] LABS: Blood Urea Nitrogen 28 mg/dl (7-17); Estimated Glomerular Filt Rate 40 ml/min (>60); GFR (African American) 48 ML/MIN (>60)
[2021-08-31 14:55] LABS: Alanine Aminotransferase 23 U/L (12-78); Albumin Level 4.3 g/dl (3.5-5.0); Albumin/Globulin Ratio 1.7 (1.1-1.8); Alkaline Phosphatase 61 U/L (38-126); Anion Gap 14.8 mEq/L (5-15); Aspartate Amino Transferase 34 U/L (14-36); Bilirubin,Total 0.4 mg/dl (0.2-1.3); Calcium 8.6 mg/dl (8.4-10.2); Carbon Dioxide 27 mmol/L (22.0-30.0); Globulin 2.5 g/dL (1.3-3.2); Glucose 129 mg/dl (74-100); Iron 85 ug/dL (37-170); Total Protein,Serum 6.8 g/dl (6.3-8.2)
[2021-08-31 15:04] LABS: Total Iron Binding Capacity 315 ug/dL (265-497)
[2021-08-31 15:26] LABS: Thyroid Stimulating Hormone 2.92 uIU/mL (0.465-4.68)
[2021-08-31 15:31] LABS: Ferritin 29.4 ng/ml (11.1-264)
[2021-08-31 17:49] LABS: Vitamin B12 661 pg/mL (239-931)
[2021-09-02 11:13] LABS: Haptoglobin 144 mg/dL (42-346)
[2021-09-02 13:32] LABS: Peripheral Smear Review Scanned Result
[2021-09-04 15:10] LABS: Albumin 3.8 g/dL (2.9-4.4); Alpha-1-Globulin 0.2 g/dL (0.0-0.4); Alpha-2-Globulin 0.8 g/dL (0.4-1.0); Gamma Globulin 0.9 g/dL (0.4-1.8); Immunoglobulin A, Qn 362 mg/dL (64-422); Immunoglobulin G, Qn 871 mg/dL (586-1602); Immunoglobulin M, Qn 36 mg/dL (26-217); Protein, Total 6.8 g/dL (6.0-8.5)
[2021-09-04 21:24] LABS: Free Kappa Lt Chains 50.2; Free Lambda Lt Chains 48.1
== END ==
PROVIDERS: Visit Provider Internal Medicine Medical Oncology
DX: D50.9 Iron deficiency anemia, unspecified (principal); D45 Polycythemia vera; Z79.899 Other long term (current) drug therapy
CPT/HCPCS: 36415; 80053; 82607; 82728; 82746; 82784; 83010; 83540; 83550; 83883; 84155; 84165; 84443; 85025; 86334

== ENCOUNTER 2023-09-10 12:52 | Outpatient (CLI) | payer MEDICARE, MEDICAID, SELFPAY ==
--- NOTE | 2023-09-10 12:53 | CA_ITS ---
APPROVED REPORT EXAM: Comprehensive 2D, Doppler, and color-flow Echocardiogram Drama Director: Joaquina Chicas CRT Ht: 5 ft 5 in Wt: 146lbs BSA: 1.73 BP: 118/55 mmHg Indications: Chest Pain, COPD, Shortness of Breath, Diabetes, Hyperlipidemia, Hypertension/HDD, hx covid 2D Dimensions LA Volume 36.90 mL LA Volume Index 21.938371 mL/m2 (M/F) 16-34 M-Mode Dimensions RVDd 3.30 cm (0.9-2.6) LA Diam 3.60 cm (1.9-4.0) LVDd 4.67 cm (3.5-5.7) LVDs 3.49 cm (3.5-5.7) IVSd 1.28 cm (0.6-1.1) PWd 0.40 cm (0.6-1.1) EF (Teich) 49.90% FS 25.30% EDV (Teich) 100.80 mL TAPSE 1.41 (<1.7) ESV (Teich) 50.50 mL LV Diastology E Decel Time 207 (160-240 msec) E/A Ratio 0.58 Aortic Valve AI PHT 480.00 ms AO Peak GR. 10.70 mmHg Mitral Valve MV E Max Danny. 51.0 (40-130 cm/s) MV A Velocity 88.0 (40-130 cm/s) E/A Ratio 0.58 MV PHT 61.0 ms Pulmonary Valve PV Peak Velocity 251.0 (50-150 cm/s) Tricuspid Valve TR P. Velocity 260.00 cm/s RAP Estimate 10.00 mmHg RVSP 37.00 mmHg Left Ventricle The left ventricle is normal size. The left ventricular systolic function is normal. The left ventricular ejection fraction is within the normal range. There is normal LV wall thickness. There is normal LV segmental wall motion. Transmitral Doppler flow pattern suggests impaired LV relaxation. LVEF is 55%. Right Ventricle The right ventricle is mildly dilated. The right ventricular systolic function is normal. Atria Left atrium is mildly dilated. Right atrium is mildly dilated. There is no Doppler evidence of interatrial shunt. Aortic Valve The aortic valve is mildly thickened. There is no aortic valvular stenosis. Mild aortic regurgitation. Mitral Valve The mitral valve is normal in structure. No evidence of mitral valve stenosis. Trace mitral regurgitation. Tricuspid Valve The tricuspid valve leaflets are thin and pliable. Trace tricuspid regurgitation. RVSP is 20-25 mmHg. Pulmonic Valve The pulmonary valve is normal in structure. Trace pulmonic regurgitation. Great Vessels The aortic root is normal in size. The ascending aorta is normal in size. IVC is normal in size and collapses >50% with inspiration. Pericardium There is no pericardial effusion. Other Information Study Quality: Fair Conclusion Normal biventricular systolic function. Mild RV dilation. Biatrial dilation. Mild AI. Electronically signed by : Alecia Jo MD 09/14/2023 15:59:30
== END 2023-09-10 23:59 ==
LOC: RT 12:53
PROVIDERS: PCP Family Medicine; Visit Provider Nurse Practitioner Family
DX: R94.30 Abnormal result of cardiovascular function study, unspecified (principal); R60.9 Edema, unspecified; I25.118 Atherosclerotic heart disease of native coronary artery with other forms of angina pectoris
CPT/HCPCS: 93306

== ENCOUNTER 2023-09-30 13:36 | Outpatient (CLI) | payer MEDICARE, MEDICAID, SELFPAY ==
[2023-09-30 13:42] LABS: Microscopic, Urine URINE MICROSCOPIC (MICROSCOPIC)
[2023-09-30 14:31] LABS: Appearance,Urine CLEAR (Clear); Bilirubin,Urine Negative (Negative); Blood, Urine Negative (Negative); Color,Urine YELLOW (Yellow); Glucose,Urine (UA) 1+ (Negative); Ketones,Urine Negative (Negative); Leukocyte Esterase,Urine TRACE (Negative); Nitrate,Urine Negative (Negative); Protein,Urine Negative (Negative); Urobilinogen,Urine 0.2 EU/dl (0.2)
[2023-09-30 14:41] LABS: Basophils # 0.1 K/mm3 (0-0.2); Basophils % 1.1 % (0.1-2.0); Eosinophils # 0.2 K/mm3 (0.0-0.4); Eosinophils % 5.1 % (0.1-12.0); Hematocrit 38.8 % (37.0-47.0); Hemoglobin 12.4 g/dL (12.2-16.2); Lymphocytes # 1.4 K/mm3 (0.7-4.5); Lymphocytes % 31.3 % (10-50); Mean Corpuscular HGB Conc 32.1 g/dL (31.8-35.4); Mean Corpuscular Volume 96.6 fl (81-99); Mean Platelet Volume 9.3 fl (7.4-10.4); Monocytes # 0.3 K/mm3 (0.1-1.0); Monocytes % 6.4 % (1.7-9.3); Neutrophils # 2.4 K/mm3 (1.8-7.8); Platelet Count 249 K/mm3 (142-424); Red Blood Count 4.01 M/mm3 (4.20-5.40); Red Cell Distribution Width 14.6 % (11.5-17.5); White Blood Count 4.3 K/mm3 (4.8-10.8)
[2023-09-30 15:14] LABS: Bacteria,Urine Trace /lpf; Blood Urea Nitrogen 28 mg/dl (7-17); Calcium 9.8 mg/dl (8.4-10.2); Carbon Dioxide 28 mmol/L (22.0-30.0); Chloride 106 mmol/L (98-107); Estimated Glomerular Filt Rate 29 ml/min (>60); GFR (African American) 35 ML/MIN (>60); Glucose 227 mg/dl (74-100); Sodium 141 mmol/L (136-145); WBC,Urine Occasional #/hpf (0-3)
== END 2023-09-30 23:59 | disposition home or self-care (01) ==
LOC: LAB 13:38
PROVIDERS: PCP Family Medicine; Visit Provider Nurse Practitioner Family
DX: R39.198 Other difficulties with micturition (principal); I25.118 Atherosclerotic heart disease of native coronary artery with other forms of angina pectoris; R06.00 Dyspnea, unspecified
CPT/HCPCS: 36415; 80048; 81001; 85025

== ENCOUNTER 2023-10-14 11:20 | Outpatient (CLI) | payer MEDICARE, MEDICAID, SELFPAY ==
[2023-10-14 13:47] LABS: Blood Urea Nitrogen 28 mg/dl (7-17); Estimated Glomerular Filt Rate 31 ml/min (>60); GFR (African American) 38 ML/MIN (>60)
== END 2023-10-14 23:59 | disposition home or self-care (01) ==
LOC: LAB 11:21
PROVIDERS: PCP Family Medicine; Visit Provider Internal Medicine
DX: I25.118 Atherosclerotic heart disease of native coronary artery with other forms of angina pectoris (principal)
CPT/HCPCS: 36415; 82565; 84520

== ENCOUNTER 2023-10-23 11:46 | Outpatient (CLI) | payer MEDICARE, MEDICAID, SELFPAY ==
[2023-10-23] VITALS (7 sets, daily range): BP systolic 126–166; BP diastolic 68–82; PULSE 61–77; RESP 16–18; TEMP 37.2; O2SAT 92–95; BMI 23.3
--- NOTE | 2023-10-23 11:47 | CT_ITS ---
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 A noncontrast coronary calcium scan was performed. A CT attenuation threshold of 130 Hounsfield units (HU) was used for the detection of calcium in contiguous voxels of 1 sq mm in area to be counted as individual lesions. Bolus tracking in the ascending aorta with a threshold of 180 HU was performed. Immediately afterwards, ECG synchronized cardiac CT was then performed from the cardiac base to apex using retrospective gating with ECG tube current modulation. A total of 85 mL of Isovue 370 mg/mL contrast medium was administered at 5 mL/sec followed by a saline flush using a biphasic injection protocol. A tube voltage of 120 KVp was used. The patient received the following medications prior to the cardiac CT. 50 mg of oral metoprolol 15 mg of oral ivabradine 0.8 mg of sublingual nitroglycerin The average heart rate at the time of acquisition was 50 bpm and regular. Image Reconstruction Transaxial images were reconstructed at 0.67 mm slide thickness. Data was reviewed interactively on an advanced workstation capable of 2 and 3-dimensional displays in all conventional reconstruction formats, including multiplanar reformations, maximum intensity projections, curved multiplanar reformations, and volume rendered reconstructions. When applicable, selected routine images describing the relevant coronary anatomy and pathology were saved and sent to PACS. Complications None Technical Quality Overall image quality was good. Coronary artery opacification was adequate. Total DLP (Dose-Length Product) is 1210.0 mGy-cm. The reported value represents the total of one or more individual components during the CT acquisition of this date and at this time, and as such, the same value may appear in more than one CT report depending on the interpreting/reporting physicians. COMPARISON None FINDINGS CT Coronary Calcium Scoring LMA (Left Main Artery) = 137 LAD (Left Anterior Descending) = 51 LCX (Left Coronary Circumflex) = 189 RCA (Right Coronary Artery) = 408 Total Calcium Score = 785 using the AJ-130 method. The observed calcium score of 785 is at 91st percentile for subjects of the same age, sex, and race/ethnicity. The interpretation of the calcium heart score is based on the following continuum*: 0 = no calcified plaque detected (risk of coronary artery disease is very low ??? less than 5%) 1-10 = calcium detected in extremely minimal levels (risk of coronary diseases is still low ??? less than 10%) 11-100 = mild levels of plaque detected with certainty (mild or minimal narrowing of heart arteries is likely) 101-400 = definite,at least moderate levels of plaque detected (relatively high risk of a heart attack within 3-5 years) >401-999 = extensive levels of plaque detected (high risk of heart attack, high levels of vascular disease are present, high likelihood of at least one significant coronary narrowing) *The calcium heart score quantifies the burden of coronary calcification/plaque in the coronary arteries. The calcium heart score is not able to evaluate the presence or burden of non-calcified (i.e. soft) plaque. There is also identifiable calcification in the aortic root, as well as the ascending and descending thoracic aorta. Coronary CT Angiography The coronary arterial system is right dominant. Quantitative Stenosis Grading: Left Main (LM): The left main originates normally from the left sinus of Valsalva. The LM bifurcates into the left anterior descending artery and left circumflex artery. There is mixed calcified/noncalcified plaque in the mid LM segment, with up to 50% luminal stenosis. Left Anterior Descending (LAD) and Diagonal Branches: The LAD gives off 2 diagonal branch(es). There is mixed calcified/noncalcified plaque in the proximal LAD with 25-49% luminal stenosis. There is no evidence of LAD-myocardial bridge. Ramus-intermedius (RI): The RI is a small caliber vessel. There is mixed calcified/noncalcified plaque in the mid ramus intermedius segment, with indeterminant degree of luminal stenosis due to small caliber vessel. Left Circumflex (LCX) and Obtuse Marginals (OM): The LCX gives off 1 Obtuse Marginal (OM) branch(es). There is mixed calcified/noncalcified plaque in the proximal LCx, with up to 50 to 70% luminal stenosis. Right Coronary Artery (RCA): The RCA originates normally from the right sinus of Valsalva. The RCA gives off a posterior descending artery (PDA) and posterolateral (PL) branches. There is mixed calcified/noncalcified plaque in the proximal and mid RCA segments with up to 25-49% luminal stenosis.. Non-Coronary Cardiac Findings: Analysis of the left ventricular (LV) structure and function was performed after 3-D reconstruction of the LV from axial images, with user-corrected automatic contouring for assessment of LV volumes and user-defined reconstruction from oblique planes for measurement of 3-D cardiac structure and function. -The left ventricle systolic function is normal. -There is no left atrial appendage filling defect. Two right pulmonary veins and two left pulmonary veins drain normally into the left atrium. -No pericardial thickening or calcification. -Central and branch pulmonary arteries in the [id number] are unremarkable. -Thoracic aorta within the visualized thoracic aortic-branches in the [id number] is unremarkable. Extracardiac Structures No significant extra-cardiac findings. Note, however, that this study is focused on the cardiac findings. IMPRESSION -Presence of coronary calcification with an Agatston score = 785 using the AJ-130 method. -The observed calcium score of 785 is at 91st percentile for subjects of the same age, sex, and race/ethnicity. -Multivessel atherosclerotic coronary disease, with possible significant flow-limiting stenosis in the mid-LM segment, as well as the proximal LCX -CAD-RADS 4B. Management recommendations per ACC/AHA guidelines*, as clinically appropriate. *Recommendations: CAD RADS 0: Reassurance. Consider non-atherosclerotic causes of chest pain. CAD RADS 1: Consider non-atherosclerotic causes of chest pain. Consider preventive therapy and risk factor modification. CAD RADS 2: Consider non-atherosclerotic causes of chest pain. Consider preventive therapy and risk factor modification, particularly for patients with nonobstructive plaque in multiple segments. CAD RADS 3: Consider further functional testing. Consider symptom-guided anti-ischemic and preventive pharmacotherapy as well as risk factor modification per published guideline statements. CAD RADS 4A: Consider further functional testing or invasive coronary angiography with revascularization per published guideline statements. Consider symptom-guided anti-ischemic and preventive pharmacotherapy as well as risk factor modification per published guideline statements. CAD RADS 4B: Invasive coronary angiography recommended with revascularization per published guideline statements. Consider symptom-guided anti-ischemic and preventive pharmacotherapy as well as risk factor modification per published guideline statements. CAD RADS 5: Consider invasive angiography and/or viability assessment with revascularization per published guideline statements. Consider symptom-guided anti-ischemic and preventive pharmacotherapy as well as risk factor modification per published guideline statements. CRITICAL RESULT None COMMUNICATION Per this written report The coronary and cardiac findings of this CCTA were reviewed, reported, and signed by Bull Jo MD (Personal Care Aide) Conclusion Electronically signed by : Alecia Jo MD 10/24/2023 12:59:17
[2023-10-23 12:32] LABS: POC Glucose,Bedside 166 (70-110)
[2023-10-23 12:39] LABS: Anion Gap 13.1 mEq/L (5-15); Blood Urea Nitrogen 23 mg/dl (7-17); Calcium 8.8 mg/dl (8.4-10.2); Carbon Dioxide 26 mmol/L (22.0-30.0); Chloride 104 mmol/L (98-107); Creatinine Clearance Estimated 33 mL/min (50-200); Estimated Glomerular Filt Rate 34 ml/min (>60); GFR (African American) 41 ML/MIN (>60); Glucose 176 mg/dl (74-100); Potassium 4.1 mmoL/L (3.5-5.1); Sodium 139 mmol/L (136-145)
[2023-10-23] MEDS: METOPROLOL TARTRATE 50MG TABLET *IVABRADINE+METOPROLOL REGIMINE 50 MG PO (12:53)
[2023-10-23] MEDS: IVABRADINE HCL 7.5MG TABLET *IVABRADINE+METOPROLOL REGIMINE 15 MG PO (12:53)
[2023-10-23] MEDS: 0.9 % SODIUM CHLORIDE 1000ML 1,000 ML 999 ML IV (12:54)
[2023-10-23] MEDS: NITROGLYCERIN 0.4MG SL TABLET 0.800000000000000044 MG SL (13:55)
[2023-10-23] MEDS: IOPAMIDOL-370 (76%);100ML BOTTLE 85 ML IV (14:00)
[2023-10-23] MEDS: 0.9 % SODIUM CHLORIDE 50 ML VIAL IV (14:00)
[2023-10-23] MEDS: SODIUM CHLORIDE 0.9% 10ML SYR (RAD ONLY) 10 ML IV (14:00)
== END 2023-10-23 14:39 | disposition home or self-care (01) ==
PROVIDERS: PCP Family Medicine; Visit Provider Nurse Practitioner Family
DX: I25.118 Atherosclerotic heart disease of native coronary artery with other forms of angina pectoris (principal)
CPT/HCPCS: 75574; 80048; 82962; Q9967

== ENCOUNTER 2023-11-25 08:20 | Day surgery (SDC) | payer MEDICARE, MEDICAID, SELFPAY ==
[2023-11-25] VITALS (18 sets, daily range): BP systolic 105–215; BP diastolic 74–90; PULSE 51–69; RESP 15–19; TEMP 36.6; O2SAT 92–96; BMI 24.4
--- NOTE | 2023-11-25 07:22 | IR_ITS ---
APPROVED REPORT Patient Location: Outpatient Production Planning Manager: TONY Morris RT (R) PROCEDURES Left heart catheterization Left ventriculogram Selective coronary angiogram Bilateral selective renal angiogram INDICATION Abnormal CCTA, Coronary artery disease, Creatinine 1.3, Severe hypertension suspect renal artery stenosis causing renovascular hypertension Informed consent was obtained prior to the procedure. COMPLICATIONS NONE Estimated Blood Loss: LESS THAN 10 ML TECHNIQUE One percent lidocaine used to anesthetize the right anterior aspect of the wrist. The right radial artery was accessed via the Seldinger technique. A 6 [place]i sheath was placed in the right radial artery. 2.5 mg of Verapamil, 800 mcg of nitroglycerin, 1mg Lidocaine and 5000 U Heparin were given through the arterial sheath. The papa catheter was also used to perform left heart catheterization, left ventriculogram and selective coronary angiogram. The Poppa catheter was used to perform bilateral selective renal angiography. Patient's systolic blood pressure was 200 mmHg while sedate and her creatinine was 1.3. Because arterial access was already achieved the suspicion of renal artery stenosis was high therefore bilateral selective renal angiography was performed at the end of the procedure the sheath was removed good hemostasis was achieved using Traclet band, patient was transferred to the postop holding area in stable condition. ANGIOGRAPHIC RESULTS The left main artery Has an ostial 30 to 40% stenosis with no demonstrable gradient upon pullback from the left main artery into the aorta with a 6 [place] catheter The left anterior descending artery Has mild proximal and mid vessel 10 to 20% calcified plaque The circumflex artery Is dominant and has proximal eccentric calcified 30% stenosis The right coronary artery Codominant and has mid vessel smooth 30% calcified stenosis The SEVILLA ventriculogram reveals Normal 65% The left ventricular end-diastolic pressure Less than 10 mmHg Right renal artery singular and has a 50% ostial stenosis with a 10 mm gradient upon pullback with a 6 [place] catheter Left renal artery singular normal IMPRESSION Coronary disease as described above which is best managed medically Normal ejection fraction Normal left ventricular end-diastolic pressure Moderate to severe right renal artery stenosis with no significant hemodynamic gradient between the aorta and renal artery PLAN 1. Medical management 2. Patient's systolic blood pressure was 200 mmHg while sedate. I suspect most of her symptoms stem from hypertensive heart disease/hypertension 3. LDL less than 55 to be achieved with high intensity statin Electronically signed by : Bear Sanders MD 11/25/2023 11:51:25
[2023-11-25 09:04] LABS: Basophils # 0.1 K/mm3 (0-0.2); Basophils % 1.1 % (0.1-2.0); Eosinophils # 0.3 K/mm3 (0.0-0.4); Eosinophils % 5.7 % (0.1-12.0); Hematocrit 37.1 % (37.0-47.0); Hemoglobin 12.4 g/dL (12.2-16.2); Lymphocytes # 1.2 K/mm3 (0.7-4.5); Lymphocytes % 24.8 % (10-50); Mean Corpuscular HGB Conc 33.5 g/dL (31.8-35.4); Mean Corpuscular Hemoglobin 31.6 pg (27.0-31.2); Mean Corpuscular Volume 94.2 fl (81-99); Mean Platelet Volume 8.9 fl (7.4-10.4); Monocytes # 0.3 K/mm3 (0.1-1.0); Monocytes % 6.3 % (1.7-9.3); Neutrophils # 2.9 K/mm3 (1.8-7.8); Platelet Count 243 K/mm3 (142-424); Red Blood Count 3.94 M/mm3 (4.20-5.40); Red Cell Distribution Width 14.3 % (11.5-17.5); White Blood Count 4.7 K/mm3 (4.8-10.8)
[2023-11-25 09:14] LABS: Chloride 104 mmol/L (98-107)
[2023-11-25 09:15] LABS: Potassium 4.7 mmoL/L (3.5-5.1); Sodium 138 mmol/L (136-145)
[2023-11-25 09:18] LABS: Anion Gap 13.7 mEq/L (5-15); Blood Urea Nitrogen 22 mg/dl (7-17); Calcium 9.1 mg/dl (8.4-10.2); Carbon Dioxide 25 mmol/L (22.0-30.0); Creatinine Clearance Estimated 39 mL/min (50-200); Estimated Glomerular Filt Rate 40 ml/min (>60); GFR (African American) 48 ML/MIN (>60); Glucose 250 mg/dl (74-100)
[2023-11-25] MEDS: 0.9 % SODIUM CHLORIDE 500 ML 25 ML IV (11:10)
[2023-11-25] MEDS: diphenhydrAMINE 50MG/ML VIAL 50 MG IV (11:10)
[2023-11-25] MEDS: HEPARIN 1,000 UNITS/500ML NS (CATH LAB) 3000 UNIT IV (11:10)
[2023-11-25] MEDS: LIDOCAINE 1% 10ML MDV 20 ML IJ (11:11)
[2023-11-25] MEDS: FENTANYL 100MCG/2ML VIAL 50 MCG IV (11:11)
[2023-11-25] MEDS: MIDAZOLAM HCL 1MG/1ML 5ML VIAL 1 MG IV (11:11)
[2023-11-25] MEDS: IOPAMIDOL-370 (76%);100ML BOTTLE 80 ML IV (12:10)
[2023-11-25] MEDS: MORPHINE 2MG/ML SYRINGE 2 MG IM (14:16)
[2023-11-25] MEDS: HYDRALAZINE 20MG/ML VIAL 20 MG IV (14:30)
--- NOTE | 2023-11-25 14:31 | SUR.PHASEII ---
Pt c/o pain in her right arm, assessed arm noticed bruising and edema around antecubital part of arm, BP cuff applied, MD notified, MD states treat pt for pain and HTN, see mar for orders.
[2023-11-25] MEDS: HYDROCODONE/APAP 5/325 MG TABLET 2 TAB PO (15:32)
[2023-11-25 15:44] LABS: POC Glucose,Bedside 261 (70-110)
== END 2023-11-25 16:59 | disposition home or self-care (01) ==
PROVIDERS: PCP Family Medicine; Visit Provider Internal Medicine
DX: R93.1 Abnormal findings on diagnostic imaging of heart and coronary circulation (principal); R39.198 Other difficulties with micturition; R94.30 Abnormal result of cardiovascular function study, unspecified; I25.118 Atherosclerotic heart disease of native coronary artery with other forms of angina pectoris; E78.2 Mixed hyperlipidemia; I10 Essential (primary) hypertension; E11.69 Type 2 diabetes mellitus with other specified complication; R06.00 Dyspnea, unspecified; R60.9 Edema, unspecified; Z79.899 Other long term (current) drug therapy; Z79.84 Long term (current) use of oral hypoglycemic drugs; I15.0 Renovascular hypertension; I25.2 Old myocardial infarction
CPT/HCPCS: 36252; 80048; 82962; 85025; 93458; 99152; C1725; C1769; J1644; J2250; J2270; J3010; Q9967

== ENCOUNTER 2023-12-09 15:50 | Outpatient (CLI) | payer MEDICARE, MEDICAID, SELFPAY ==
--- NOTE | 2023-12-09 15:54 | CA_ITS ---
FINAL REPORT CLINICAL HISTORY: PT HAD HEART CATH WITH RIGHT WRIST ACCESS ON 11/25/23,PT HAS PAIN AND BRUISING RUE COMPARISON: None FINDINGS: Spectral and Doppler waveform evaluations of the right wrist was performed. Spectral analysis was performed. There is no evidence of pseudoaneurysm or AV fistula. There is echogenic material in the distal right radial artery consistent with thrombus. IMPRESSION: Thrombus distal right radial artery. Reviewed, Interpreted and Dictated by Haven Urena MD Transcribed by Catalina Kessler Authenticated and [facility]
--- NOTE | 2023-12-09 15:54 | CA_ITS ---
FINAL REPORT TECHNIQUE: Graded compression, spectral analysis and ultrasound images of the venous system of the right upper extremity were obtained. CLINICAL HISTORY: bruising of RUE, PT had cath 11/25/23 no stents placed. Pt has severe bruising of RUE FINDINGS: The jugular vein, subclavian vein, axillary vein, brachial vein, cephalic vein and basilic venous system are fully compressible and demonstrate no evidence of thrombosis. There is a 6.5 cm anechoic elliptical mass in the forearm most consistent with a evolving hematoma or seroma. IMPRESSION: No evidence of DVT or SVT in the right upper extremity. Probable evolving hematoma or seroma. Reviewed, Interpreted and Dictated by Haven Urena MD Transcribed by Catalina Kessler Authenticated and [facility]
== END 2023-12-09 23:59 | disposition home or self-care (01) ==
LOC: RT 15:52
PROVIDERS: PCP Family Medicine; Visit Provider Nurse Practitioner
DX: M79.601 Pain in right arm (principal); I74.2 Embolism and thrombosis of arteries of the upper extremities; S60.211A Contusion of right wrist, initial encounter; T88.8XXA Other specified complications of surgical and medical care, not elsewhere classified, initial encounter
CPT/HCPCS: 93931; 93971

== ENCOUNTER 2024-02-25 09:38 | Outpatient (CLI) | payer MEDICARE, MEDICAID, SELFPAY ==
--- NOTE | 2024-02-25 09:43 | XR_ITS ---
FINAL REPORT CLINICAL HISTORY: thrombus COMPARISON: None FINDINGS: RIGHT WRIST: Two images of the right wrist were obtained. There is no evidence of fracture or dislocation. There is mild hypertrophic change of the basilar joint. Diffuse osteopenia is present. There is no soft tissue abnormality identified. IMPRESSION: Mild hypertrophic change of the basilar joint without acute bony abnormality. Reviewed, Interpreted and Dictated by Flex Cox MD Transcribed by Chanda Fischer Authenticated and . [facility]
--- NOTE | 2024-02-25 09:47 | CA_ITS ---
FINAL REPORT CLINICAL HISTORY: S60.219A - Contusion of unspecified wrist, initial encounter COMPARISON: 12/09/2023 FINDINGS: ARTERIAL DOPPLER RIGHT WRIST: The prior ultrasound of 12/09/2023 had revealed thrombus in the right radial artery. On today's examination, there is normal flow in the right radial artery, with normal waveforms and velocities, consistent with a patent right radial artery. There is no evidence of residual thrombus, no fistula, and no evidence of pseudoaneurysm. IMPRESSION: Resolution of the previously described arterial thrombus in the right radial artery since the prior CT of 12/09/2023. Reviewed, Interpreted and Dictated by Flex Cox MD Transcribed by Chanda Fischer Authenticated and . [facility]
[2024-02-25 11:49] LABS: Uric Acid 3.4 mg/dl (2.5-6.2)
[2024-02-25 11:54] LABS: C-Reactive Protein 1.8 mg/L (0-4)
[2024-02-25 12:19] LABS: Erythrocyte Sedimentation Rate 22 mm/hr (0-30)
== END 2024-02-25 23:59 | disposition home or self-care (01) ==
LOC: RT 09:39
PROVIDERS: PCP Family Medicine; Visit Provider Physician Assistant
DX: I82.621 Acute embolism and thrombosis of deep veins of right upper extremity (principal); M79.601 Pain in right arm; S60.211A Contusion of right wrist, initial encounter; R60.9 Edema, unspecified; R06.09 Other forms of dyspnea; M10.9 Gout, unspecified; I10 Essential (primary) hypertension; I25.10 Atherosclerotic heart disease of native coronary artery without angina pectoris; Z86.718 Personal history of other venous thrombosis and embolism
CPT/HCPCS: 36415; 73100; 84550; 85651; 86140; 93931

== ENCOUNTER 2024-08-24 12:00 | Outpatient (CLI) | payer MEDICARE, MEDICAID, SELFPAY ==
[2024-08-24 12:32] LABS: Basophils # 0.1 K/mm3 (0-0.2); Eosinophils # 0.2 K/mm3 (0.0-0.4); Eosinophils % 4.1 % (0.1-12.0); Hematocrit 37.2 % (37.0-47.0); Hemoglobin 12.5 g/dL (12.2-16.2); Lymphocytes % 19.5 % (10-50); Mean Corpuscular HGB Conc 33.6 g/dL (31.8-35.4); Mean Corpuscular Hemoglobin 30.9 pg (27.0-31.2); Mean Corpuscular Volume 92.1 fl (81-99); Mean Platelet Volume 10.3 fl (7.4-10.4); Monocytes # 0.3 K/mm3 (0.1-1.0); Monocytes % 6.1 % (1.7-9.3); Neutrophils # 3.4 K/mm3 (1.8-7.8); Neutrophils % 69.3 % (37.0-80.0); Platelet Count 242 K/mm3 (142-424); Red Blood Count 4.04 M/mm3 (4.20-5.40); Red Cell Distribution Width 13.1 % (11.5-17.5); White Blood Count 4.9 K/mm3 (4.8-10.8)
[2024-08-24 12:45] LABS: Albumin Level 4.6 g/dl (3.5-5.0); Chloride 101 mmol/L (98-107); Potassium 4.8 mmoL/L (3.5-5.1); Sodium 138 mmol/L (136-145)
[2024-08-24 12:47] LABS: Blood Urea Nitrogen 16 mg/dl (7-17); Estimated Glomerular Filt Rate 44 ml/min (>60); GFR (African American) 53 ML/MIN (>60)
[2024-08-24 12:48] LABS: Alanine Aminotransferase 22 U/L (12-78); Alkaline Phosphatase 70 U/L (38-126); Anion Gap 14.8 mEq/L (5-15); Aspartate Amino Transferase 31 U/L (14-36); Bilirubin,Direct 0.1 mg/dl (0.0-0.4); Bilirubin,Indirect 0.5 mg/dL (0.0-0.9); Bilirubin,Total 0.6 mg/dl (0.2-1.3); Bilirubin,Unconjugated 0.5 mg/dL (0.0-1.1); Calcium 9.7 mg/dl (8.4-10.2); Carbon Dioxide 27 mmol/L (22.0-30.0); Cholesterol 152 mg/dl (140-200); Glucose 320 mg/dl (74-100); Magnesium 1.4 mg/dl (1.6-2.3); Total Protein,Serum 6.8 g/dl (6.3-8.2); Triglycerides 195 mg/dl (30-150); VLDL Cholesterol 39 mg/dL (0-40)
[2024-08-24 12:49] LABS: Chol/HDL Ratio 2.5 (1-3.5); HDL Cholesterol 60 mg/dl (40-60)
[2024-08-24 13:00] LABS: Direct LDL Cholesterol 62.28 mg/dL (100-129)
[2024-08-24 13:06] LABS: Triiodothryronine (T3) Uptake 32 % (23.5-40.5)
[2024-08-24 13:07] LABS: Free Thyroxine Index 3.4 ug/dL (5.93-13.13); T4 (Thyroxine) 10.7 ug/dl (5.53-11.0)
[2024-08-24 13:57] LABS: Hemoglobin A1C 10.1 % (4.0-6.0)
[2024-08-24 14:03] LABS: Thyroid Stimulating Hormone 1.61 uIU/mL (0.465-4.68)
== END 2024-08-24 23:59 | disposition home or self-care (01) ==
LOC: LAB 12:01
PROVIDERS: PCP Family Medicine; Visit Provider Physician Assistant
DX: I25.118 Atherosclerotic heart disease of native coronary artery with other forms of angina pectoris (principal); E78.2 Mixed hyperlipidemia; I10 Essential (primary) hypertension; E11.69 Type 2 diabetes mellitus with other specified complication; E83.42 Hypomagnesemia
CPT/HCPCS: 36415; 80048; 80061; 80076; 83036; 83735; 84436; 84443; 84479; 85025